=== PATIENT | female | born 1940 | race African-American/Black ===

== ENCOUNTER → 2016-03-30 | Day surgery (SDC) | payer OTHER ==
[2016-03-30 10:18] LABS: ALBUMIN 3.5 g/dl (3.4-5.0); CALCIUM 9.1 mg/dL (8.5-10.1)
[2016-03-30 10:21] LABS: BILIRUBIN,TOTAL 0.5 mg/dL (0.2-1.0); FREE T4 0.97 ng/dl (0.76-1.46); TOT PROT 6.8 g/dl (6.4-8.2)
[2016-03-31 06:08] LABS: THYROID PEROXIDASE(TPO) 20 IU/mL (0-34)
--- NOTE | 2016-03-31 16:58 | PATH ---
Cytology Non-Gynecological Report Patient Name: DARIEN HARPER [facility]. Rec. #: [id number] /Age/Gender: 1940 (Age: 75) / F Account: [id number] Location: RADIOLOGY Taken: 03/30/2016 Received: 03/30/2016 Reported: 03/31/2016 Physicians: Jacquelin Estrada M.D. Specimen(s) Received LEFT THYROID FNA Clinical History Left thyroid nodule, 4.57 x 3.19 x 3.87 cm Final Diagnosis THYROID GLAND, LEFT LOBE, US GUIDED FINE NEEDLE ASPIRATION BIOPSY: SATISFACTORY FOR EVALUATION. NO MALIGNANT CELLS IDENTIFIED. CONSISTENT WITH NODULAR GOITER WITH CYSTIC CHANGE (BENIGN FOLLICULAR NODULE, BETHESDA CATEGORY II, BENIGN), SEE COMMENT. Comment: The smears and the cell block show clusters of bland appearing follicular epithelial cells arranged in mixed micro- and microfollicles and flat sheets. A few cells show Hurthle cell (oncocytic) change. Numerous macrophages are present indicative of cystic change. Colloid is present. Electronically Signed Bret Gallagher M.D. Gross Description Received are four air dried smears, four smears in 95% alcohol, and 20 cc of bloody fluid in formalin. Four diff-quik stained slides, four Pap stained slides and one cell block are made.
[2016-04-01 17:55] LABS: THYROID STIMULATING HORMONE 0.29 uIU/ml (0.358-3.74)
[2016-04-05 08:06] LABS: THYROID STIM IMMUNOGLOBULIN 52 % (0-139)
== END | disposition home or self-care (01) ==
LOC: JRADIR 09:26
PROVIDERS: ATTEND Internal Medicine Endocrinology, Diabetes & Metabolism
PROC: 0G9G3ZX Drainage of Left Thyroid Gland Lobe, Percutaneous Approach, Diagnostic (ICD-10-PCS; principal; 2016-03-30)
PROC: BG44ZZZ Ultrasonography of Thyroid Gland (ICD-10-PCS; 2016-03-30)
DX: E04.1 Nontoxic single thyroid nodule (principal)
CPT/HCPCS: 36415; 76942; 80053; 84439; 84443; 84445; 84481; 86376; 88173; 88305-TC

== ENCOUNTER → 2016-04-13 | Day surgery (SDC) | payer OTHER ==
--- NOTE | 2016-04-14 14:55 | PATH ---
Cytology Non-Gynecological Report Patient Name: DARIEN HARPER [facility]. Rec. #: [id number] /Age/Gender: 1940 (Age: 76) / F Account: [id number] Location: RADIOLOGY Taken: 04/13/2016 Received: 04/13/2016 Reported: 04/14/2016 Physicians: Jacquelin Estrada M.D. Specimen(s) Received LEFT ISTHMUS NODULE FNA Clinical History Left isthmus nodule, 0.90 x 0.97 x 0.83 cm Final Diagnosis THYROID GLAND, LEFT ISTHMUS, US GUIDED FINE NEEDLE ASPIRATION BIOPSY: SATISFACTORY FOR EVALUATION. NO MALIGNANT CELLS IDENTIFIED. CONSISTENT WITH NODULAR GOITER (BENIGN FOLLICULAR NODULE, BETHESDA CATEGORY II, BENIGN), SEE COMMENT. Comment: Smears and cell block show scattered clusters of bland-appearing follicular epithelium cells with some cells showing Hurthle cell (oncocytic) change. Abundant colloid is present. Electronically Signed Bret Gallagher M.D. Gross Description Received are four air dried smears, four smears in 95% alcohol, and 20 cc of bloody fluid in formalin. Four diff-quik stained slides, four Pap stained slides and one cell block are made.
== END | disposition home or self-care (01) ==
LOC: JRADIR 08:50
PROVIDERS: ATTEND Internal Medicine Endocrinology, Diabetes & Metabolism
PROC: 0G9G3ZX Drainage of Left Thyroid Gland Lobe, Percutaneous Approach, Diagnostic (ICD-10-PCS; principal; 2016-04-13)
PROC: BG44ZZZ Ultrasonography of Thyroid Gland (ICD-10-PCS; 2016-04-13)
DX: E04.1 Nontoxic single thyroid nodule (principal)
CPT/HCPCS: 76942; 88173; 88305-TC

== ENCOUNTER 2017-06-29 06:03 | Day surgery (SDC) | payer OTHER ==
[2017-06-28 11:40] VITALS: BMI 33.9
[2017-06-29] MEDS ORDERED: oxyCODONE HCL 5 MG TABLET PO PRN ×2 (07:51)
[2017-06-29] MEDS ORDERED: ONDANSETRON 4 MG/2 ML VIAL IVPUSH PRN (07:51)
[2017-06-29] MEDS ORDERED: MIDAZOLAM HCL 2 MG/2 ML SINGLE DOSE VIAL ONE ×2 (07:54)
[2017-06-29] MEDS ORDERED: DEXAMETHASONE SOD PHOSPHATE/PF 10 MG/ML SDV ONE (07:55)
[2017-06-29] MEDS ORDERED: BUPIVACAINE HCL/PF 0.5% (5MG/ML) 10 ML VIAL ONE (07:56)
[2017-06-29] MEDS ORDERED: LACTATED RINGERS SOLUTION 1,000 ML IV SCH (08:00)
--- NOTE | 2017-06-29 08:13 | HP ---
Satellite [facility] - Chief Complaint Chief Complaint: right shoulder pain History of Present Illness: right shoulder impingement History Source: Patient Limitations to Obtaining History: No Limitations - Past Medical History Allergies/Adverse Reactions: Allergies Allergy/AdvReac Type Severity Reaction Status Date / Time No Known Allergies Allergy Verified 06/28/17 11:47 - Current Medications Current Medications: Home Medications Medication Instructions Recorded Simvastatin [Zocor -] 20 mg PO HS 07/07/15 Losartan Potassium 100 mg PO DAILY 06/28/17 Satellite Physical Exam - Physical Examination Vital Signs: Vital Signs Period Temp Pulse Resp BP Sys/Alvarez Pulse Ox Last 24 Hr 98.0 F 58 20 184/86 98 General Appearance: Well Nourished ENT: Clear Lung: Clear to auscultation Heart: Regular rate & rhythm Breasts: Soft Abdomen: Soft Extremities: No edema Satellite Impression/Plan - Impression/Plan Impression: right shoulder impingement syndrome Operative Procedure: right shoulder arthroscopy, decompression Date to be Performed: 06/29/17
[2017-06-29] MEDS ORDERED: DESFLURANE GAS 240 ML BOTTLE IH ONE ×2 (08:20→13:09)
[2017-06-29] MEDS ORDERED: ceFAZolin SODIUM 1 GM VIAL IVPB ONE (08:25)
--- NOTE | 2017-06-29 10:05 | OP ---
Operative Note - Note: Operative Date: 06/29/17 ([facility]) Pre-Operative Diagnosis: right shoulder impingement, rct Operation: right shoulder arthroscopy with RCR, SAD Implants: 1 arthrex swivelock Post-Operative Diagnosis: Same as Pre-op Surgeon: Dwayne Maldonado Community Service Officer: Hua Caldwell Anesthesiologist/RETAIL MERCHANDISER: Luigi Tineo Anesthesia: General, Local Specimens Removed: shavings Estimated Blood Loss (mls): 10 Operative Report Dictated: Yes
--- NOTE | 2017-06-29 10:32 | OP ---
DATE OF OPERATION: 06/29/2017 PREOPERATIVE DIAGNOSIS: Right shoulder impingement syndrome and rotator cuff tear. POSTOPERATIVE DIAGNOSIS: Right shoulder impingement syndrome and rotator cuff tear. PROCEDURE: Right shoulder arthroscopy, subacromial decompression, distal clavicle excision, and arthroscopic rotator cuff repair. SURGEON: Juan Claros MD VENDOR ANALYST: ANTOINETTE Frances ANESTHESIA: Luigi Tineo CRNA, right interscalene block, LMA anesthesia. DRAINS: None. COMPLICATIONS: None. SPECIMENS: None. BLOOD LOSS: 25 mL. BLOOD GIVEN: None. FLUID REPLACEMENT: 700 mL. INDICATIONS: This patient is a 77-year-old female with a preoperative diagnosis of right shoulder impingement syndrome and rotator cuff tear. After understanding the potential risks, complications, alternatives, and benefits, the patient elected to undergo this procedure. DESCRIPTION OF PROCEDURE: The patient was brought to the operating room. Peripheral IV place. IV sedation given. Then 2 g of IV Ancef were given. Right interscalene block was performed. The right upper extremity was prepped and draped in the usual sterile fashion. The bony landmarks were marked out with a marking pen. The posterior portal was established. A diagnostic glenohumeral arthroscopy was performed. In the glenohumeral joint the patient had a mild amount of glenoid arthritis. The labrum was quite frayed as was the undersurface of the rotator cuff; therefore, an anterior portal was established with a spinal needle under direct visualization. Then a No. 15 scalpel blade was used and a green cannula introduced into the anterior aspect of the joint. The ArthroCare wand was used to cauterization and the shaver used to remove the frayed portion to the undersurface of the rotator cuff tear as well as the labrum. Then the labrum looked good. It did not need repair. The humeral head looked good. Biceps tendon looked good. There was a clear full-thickness rotator cuff tear about the size of a quarter. The area was debrided on the bottom. Next, our attention was turned to the subacromial space. The patient had a tremendous amount of inflammatory bursitis. A lateral portal was established with a spinal needle then a green cannula was introduced into the subacromial space. The ArthroCare wand was used to do an extensive debridement/soft tissue bursectomy. This revealed a very large subacromial spur, which was taken down with a 5.5-mm oval bur, finetuned and reversed and then a shaver was introduced to further remove all soft tissue and bony debris. This revealed a small, distal subclavicular spur. This was taken down with a 5.5-mm oval bur and a shaver. Once this was done, there was room for visualization. There was a tremendous amount of soft tissue bursitis still. This was taken down with a shaver and the ArthroCare wand. This was revealed a full-thickness rotator cuff tear. It was not at the insertion. It was about 2 cm proximal to the insertion of the supraspinatus. It was anterior. The edges were cleaned up and ArthroCare wand used to take off soft tissue from the proximal lateral aspect of the humerus at the landing point of the rotator cuff. Once this was done, under direct visualization a Scorpion needle passer was used to put in 1 horizontal mattress suture. The 2 tails were fed through an Arthrex SwiveLock anchor, and it was placed down into the bone in the standard fashion. The excess tail was cut. It was directly visualized. The rotator cuff now moved as a unit with the humerus. A quarter-sized hole was closed up, and overall it looked much better. The area was copiously irrigated and washed out. All instrumentation removed. Excess saline removed. The arthroscopy portal was closed with 3-0 nylon sutures. The area was then washed and dried, covered with Aquacel dressings. She was placed into a shoulder immobilizer. Total operative time was about 50 minutes. There were no complications during the case. The patient tolerated the procedure quite well and was brought to the ambulatory recovery room in stable condition. JUAN CLAROS M.D. [id number]
[2017-06-29 12:31] VITALS: BP 140/70; PULSE 55; TEMP 98
--- NOTE | 2017-06-30 15:50 | PATH ---
Surgical Pathology Report Patient Name: DARIEN HARPER [facility]. Rec. #: [id number] /Age/Gender: 1940 (Age: 77) / F Account: [id number] Location: [facility] SURGICAL Taken: 06/29/2017 Received: 06/29/2017 Reported: 06/30/2017 Physicians: Dwayne Maldonado M.D. Specimen(s) Received RIGHT SHOULDER SHAVINGS Clinical History Tear right shoulder Final Diagnosis RIGHT SHOULDER, SHAVINGS: FRAGMENTS OF SYNOVIAL TISSUE WITH PROLIFERATION, CHRONIC INFLAMMATION, AND FIBROSIS. FIBROCARTILAGINOUS TISSUE AND BONE WITH DEGENERATIVE CHANGE. UNREMARKABLE SKELETAL MUSCLE FRAGMENTS. Electronically Signed Ebony Sebastian M.D. Gross Description Received in formalin, labeled "right shoulder shavings," is a 5.0 x 3.8 x 0.6 cm. aggregate of goodman-yellow soft tissue fragments. A sales representative girls' apparel portion is submitted in one cassette. /06/29/2017 saudi/06/29/2017
== END 2017-06-29 12:25 | disposition home or self-care (01) ==
LOC: JASU-SURG 06:03
PROVIDERS: ATTEND Orthopaedic Surgery
PROC: 0RNJ4ZZ Release Right Shoulder Joint, Percutaneous Endoscopic Approach (ICD-10-PCS; 2017-06-29)
PROC: 0PB94ZZ Excision of Right Clavicle, Percutaneous Endoscopic Approach (ICD-10-PCS; 2017-06-29)
PROC: 0LQ14ZZ Repair Right Shoulder Tendon, Percutaneous Endoscopic Approach (ICD-10-PCS; principal; 2017-06-29 08:00)
DX: M75.101 Unspecified rotator cuff tear or rupture of right shoulder, not specified as traumatic (principal); M75.41 Impingement syndrome of right shoulder
CPT/HCPCS: 88304-TC; 94760

== ENCOUNTER 2017-10-27 17:06 | Inpatient (IN) | payer OTHER ==
[2017-10-27 17:35] VITALS: BMI 34.7
--- NOTE | 2017-10-27 17:36 | PDOC ---
Rapid Medical Evaluation Time Seen by Provider: 10/27/17 17:30 Medical Evaluation: Allergies Allergy/AdvReac Type Severity Reaction Status Date / Time No Known Allergies Allergy Verified 06/28/17 11:47 10/27/17 17:30 Pt presents for L arm and leg numbness starting yesterday at 4am. Denies headache, visual changes, weakness in the extremities. Exam: Smile intact. No arm drift. Normal gait Orders: Labs, IV insert, Urine Pt to proceed to ED for further evaluation Discharge Disposition - Diagnosis Numbness and tingling - Referrals - Patient Instructions - Post Discharge Activity
--- NOTE | 2017-10-27 17:52 | PDOC ---
History of Present Illness - General Chief Complaint: CVA/TIA Stated Complaint: NUMBNESS Time Seen by Provider: 10/27/17 17:30 - History of Present Illness Initial Comments: 10/27/17 19:37 77 yo F w a hx of HTN, T2DM, HLD, hypothyroidism is here with left sided numbness and weakness. She last felt well on Tuesday night. On Tuesday morning she woke up with Left sided weakness, numbness and tingling in her arm and leg. She then went to her elevator conductor doctor today who suggested she might have had a stroke and urgently sent her to the ED. She presented today to the ED with residual left arm and leg numbness. She denies any headaches, blurry vission, loss of balance, or confusion. She denies recent fevers, chills or infections Denies chest pain, palpitations, irregular heart rate, SOB, difficulty breathing. 10/27/17 19:44 10/27/17 20:16 tPA Exclusion checklist 3-4.5h - Time Elapsed Date last known well: 10/25/17 Time last known well: 23:30 Elaspsed time: 1 Day(s) and 20 Hour(s) and 53 Minutes - Thrombolytic Therapy Candidate Is patient eligible for thrombolytic therapy: No - Exclusion Criteria 3-4.5 hr SBP greater than 185 or DBP greater than 110mmHg despite tx: Yes Recent IC/spinal surgery,head trauma or stroke<3mos.: No Hx IC hemorrhage, IC neoplasm, AV malformation or aneurysm: No Active internal bleeding: No Blding diathesis(low plt ct, inc PTT,INR>1.7 or use of NOAC): No Symptoms suggest subarachnoid hemorrhage: No CT demonstrates multilobar infarct(>1/3 cerebral hemiphere): No Arterial puncture at noncompressible site in previous 7 days: No Blood glucose concentration less than 50mg/dL (2.7mmol/L): No - Add'l Relative Exclusion 3-4.5 hr Age > 80: No - Ineligibility reason(s) Reasons No tPA given: Outside of window - delayed arrival (Outside of arrival NIHSS of 1 - does not wualify for TPA) NIH Stroke Scale - Last Known Well Date/Time & Onset Date Last Known Well: 10/25/17 Time Last Known Well: 23:30 - Initial Evaluation Level of consciousness: Alert Ask patient the month and their age: Answers both correctly Ask patient to open & close eyes; make fist and let go: Obeys both correctly Best gaze (horizontal eye movement): Normal Visual field testing: No visual field loss Facial paresis (Show teeth/raise eyebrows/close eyes tight): Normal symmetrical movement Motor Function: Left Arm: Normal Motor Function: Right Arm: Normal (extends arm 90 (or 45) degrees for 10 seconds without drift Motor Function: Left Leg: Normal (extends leg 30 degrees for 5 seconds without drift) Motor Function: Right Leg: Normal (extends leg 30 degrees for 5 seconds without drift) Limb Ataxia: No ataxia Sensory(Use pinprick test arms,legs,trunk,face/side to side): Mild to moderate decrease in sensation Best language (Describe picture, name items, read sentences): No Aphasia Dysarthria (read several words): Normal articulation Extinction and Inattention: No abnormality - Total Score NIH Stroke Scale Score: 1 Past History - Past Medical History Allergies/Adverse Reactions: Allergies Allergy/AdvReac Type Severity Reaction Status Date / Time No Known Allergies Allergy Verified 10/27/17 17:31 Home Medications: Ambulatory Orders Simvastatin [Zocor -] 20 mg PO HS 07/07/15 Losartan Potassium 100 mg PO DAILY 06/28/17 Anemia: No Asthma: No Cancer: No Cardiac Disorders: No CVA: No COPD: No CHF: No Dementia: No Diabetes: No GI Disorders: No Disorders: No HTN: Yes Hypercholesterolemia: Yes Liver Disease: No Seizures: No Thyroid Disease: Yes (hypothyroid) - Immunization History Immunization Up to Date: Yes - Suicide/Smoking/Psychosocial Hx Smoking History: Never smoked Hx Alcohol Use: Yes (wine occas) Drug/Substance Use Hx: No Substance Use Type: Alcohol Hx Substance Use Treatment: No Review of Systems - Review of Systems Comments:: 10/27/17 19:50 NEUROLOGIC: Positive: Focal weakness, paresthesias Absent: headache, dizziness, unsteady gait, seizure, mental status changes, bladder or bowel incontinence CONSTITUTIONAL: Absent: fever, chills, diaphoresis, generalized weakness, malaise, loss of appetite HEENT: Absent: rhinorrhea, nasal congestion, throat pain, throat swelling, difficulty swallowing, mouth swelling, ear pain, eye pain, visual Changes CARDIOVASCULAR: Absent: chest pain, syncope, palpitations, irregular heart rate, lightheadedness , peripheral edema RESPIRATORY: Absent: cough, shortness of breath, dyspnea with exertion, orthopnea, wheezing, stridor, hemoptysis GASTROINTESTINAL: Absent: abdominal pain, abdominal distension, nausea, vomiting, diarrhea, constipation, melena, hematochezia GENITOURINARY: Absent: dysuria, frequency, urgency, hesitancy, hematuria, flank pain, genital pain MUSCULOSKELETAL: Absent: myalgia, arthralgia, joint swelling SKIN: Absent: rash, itching, pallor HEMATOLOGIC/IMMUNOLOGIC: Absent: easy bleeding, easy bruising, lymphadenopathy, frequent infections ENDOCRINE: Absent: unexplained weight gain, unexplained weight loss, heat intolerance, cold intolerance PSYCHIATRIC: Absent: anxiety, depression, suicidal or homicidal ideation, hallucinations. *Physical Exam - Vital Signs Last Vital Signs Temp Pulse Resp BP Pulse Ox 97.9 F 55 L 18 0/0 100 10/27/17 17:31 10/27/17 17:31 10/27/17 17:31 10/27/17 17:31 10/27/17 17:31 - Physical Exam Comments: 10/27/17 19:51 NEUROLOGICAL: There is decreased sensation and motor weakness in both the Left arm and left leg. Alert, awake, appropriate. Cranial nerves 2-12 intact. No deficits to light touch in face. No motor deficits in the in face. Normoreflexic in the upper and lower extremities. Normal speech. Toes are down-going bilaterally. Gait is normal without ataxia. GENERAL: Well developed, well nourished. Awake and alert. No acute distress. HEENT: Normocephalic, atraumatic. PERRLA, EOMI. No conjunctival pallor. Sclera are non- icteric. Moist mucous membranes. Oropharynx is clear. NECK: Supple. Full ROM. No JVD. No lymphadenopathy. CARDIOVASCULAR: Bradycardic rate, regular rhythym. No murmurs, rubs, or gallops. Distal pulses are 2+ and symmetric. PULMONARY: No evidence of respiratory distress. Lungs clear to auscultation bilaterally. No wheezing, rales or rhonchi. ABDOMINAL: Soft. Non-tender. Non-distended. No rebound or guarding. No organomegaly. Normoactive bowel sounds. MUSCULOSKELETAL Normal range of motion at all joints. No bony deformities or tenderness. No CVA tenderness. EXTREMITIES: No cyanosis. No clubbing. No edema. No calf tenderness. SKIN: Warm and dry. Normal capillary refill. No rashes. No jaundice. PSYCHIATRIC: Cooperative. Good eye contact. Appropriate mood and affect. ED Treatment Course - LABORATORY CBC & Chemistry Diagram: 10/27/17 17:37 10/27/17 17:37 Medical Decision Making - Medical Decision Making 10/27/17 19:55 77 yo F w a hx of HTN, T2DM, HLD, hypothyroidism here with left sided weakness and numbness. 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 Plan: Stroke/CVA workup. BP is elevated to 190 systolic. HR decreased to 55. We will give hydralazine to lower BP and then re-assess. Consulted Dr. Andrea and he advised to start Aggrenox bc her baby aspirin has failed her. We gave her 325 aspirin here in ED. EKG did not show AFIB Labs were unremarkable. She will be admitted for further workup - echo, carotid doppler, mri/mra 10/27/17 20:23 10/27/17 20:25 10/27/17 20:28 *DC/Admit/Observation/Transfer Diagnosis at time of Disposition: Numbness and tingling, Cerebrovascular accident (CVA) - Discharge Dispostion Condition at time of disposition: Guarded Decision to Admit order: Yes - Referrals - Patient Instructions - Post Discharge Activity
[2017-10-27] MEDS ORDERED: SODIUM CHLORIDE 1,000 ML IV SCH (18:00)
[2017-10-27 19:02] LABS: INR 1.06 (0.83-1.09)
[2017-10-27 19:07] LABS: BASO % 0.5 % (0-2.0); EOS % 3.3 % (0-4.5); HEMOGLOBIN 12.8 GM/dL (10.7-15.3); LYMPH % 28.9 % (8-40); MCHC 32.7 g/dl (32.0-36.0); MEAN CELL VOLUME 85.7 fl (80-96); MEAN PLT VOLUME 11.1 fl (7.5-11.1); MONO % 11.3 % (3.8-10.2); PLATELET COUNT 159 K/MM3 (134-434); RBC 4.55 M/mm3 (3.60-5.2); RDW 14.3 % (11.6-15.6)
[2017-10-27 19:13] LABS: CHOLESTEROL 158 mg/dL (50-200); HDL CHOLESTEROL 65 mg/dL (40-60); TRIGLYCERIDES 61 mg/dL (35-160)
[2017-10-27 19:18] LABS: ALK PHOS 81 U/L (45-117); ANION GAP 8 MMOL/L (8-16); BILIRUBIN,TOTAL 0.7 mg/dL (0.2-1.0); BLOOD UREA NITROGEN 27 mg/dL (7-18); CALCIUM 9.1 mg/dL (8.5-10.1); CHLORIDE 106 mmol/L (98-107); CO2 28 mmol/L (21-32); CREATININE 0.9 mg/dL (0.55-1.3); GLUCOSE,RANDOM 84 mg/dL (74-106); SGPT/ALT 27 U/L (13-61); SODIUM 142 mmol/L (136-145); TOT PROT 7.6 g/dl (6.4-8.2)
[2017-10-27 19:27] LABS: POTASSIUM 4.8 mmol/L (3.5-5.1)
[2017-10-27 19:28] LABS: SGOT/AST 27 U/L (15-37)
[2017-10-27] MEDS ORDERED: ASPIRIN 325 MG TABLET PO ONE (19:28)
--- NOTE | 2017-10-27 19:29 | PDOC ---
Attending Attestation - Resident Resident Name: Sal Mcfarland - HPI HPI: 10/27/17 19:45 Pt presents to the ED complaining of 48 hours of LUE and LLE numbness and weakness. Presented to her property master today who told her to come to the ED to be worked up for CVA. Patient is concerned about missing an appointment that she has for pain management tomorrow Am at 9:00. 10/27/17 19:53 - Physicial Exam PE: 10/27/17 19:54 Agree with resident exam. Patient is alert and oriented and in no acute distress. Neuro: AAOx3, speech fluent and clear. 4/5 strength LUE apron trimmer and biceps flexion. Able to lift left leg off the bed but not to hold it up. - Medical Decision Making 10/27/17 19:55 Pt presents to the ED complaining of LUE and LLE numbness and weakness. Denies other complaints. Concern for CVA--CT shows R sided infarct. Plan was to admit the patient for continued CVA work up, including carotid doppler and ECHO and MRI/MRA, but patient is choosing to leave AMA. She has a pain management appointment for long standing back pain that she made several years ago, and she is very worried about missing it. She wants to return to the ED tomorrow after her appointment to complete her work up. I have spoken with her at length about the risk of further CVA with worsening neurologic deficits, including loss of the ability to speak and walk and and she is adamant about leaving. She understands the risks and promises to return for follow up care.
[2017-10-27] MEDS ORDERED: ASPIRIN 325 MG TABLET ONE (19:31)
[2017-10-27 19:54] LABS: URINE APPEARANCE CLEAR; URINE BILIRUBIN NEGATIVE (<2.0 mg/dL); URINE COLOR YELLOW; URINE GLUCOSE (UA) 3+ (NEGATIVE); URINE KETONE NEGATIVE (NEGATIVE); URINE LEUK ESTERASE NEGATIVE (NEGATIVE); URINE NITRITE NEGATIVE (NEGATIVE); URINE PROTEIN NEGATIVE (NEGATIVE); URINE UROBILINOGEN NEGATIVE mg/dL (0.2-1.0)
[2017-10-27] MEDS ORDERED: hydrALAZINE HCL 10 MG TABLET PO ONE ×2 (20:25→22:29)
[2017-10-27] MEDS ORDERED: hydrALAZINE HCL 25 MG TABLET (FP) ONE ×2 (20:27→22:32)
--- NOTE | 2017-10-27 21:17 | PN ---
Teaching Attending Note Name of Resident: Inés Osborn ATTENDING PHYSICIAN STATEMENT I saw and evaluated the patient. I reviewed the resident's note and discussed the case with the resident. I agree with the resident's findings and plan as documented. SUBJECTIVE: Patient is a 77 year old woman with history of HTN, NIDDM, HLD, and hypothyroidism who presents with left sided numbness and weakness for 1 day. She last felt well on Tuesday night. On Tuesday morning she woke up with Left sided weakness, numbness and tingling in her arm and leg. She then went to her integrated circuit layout designer doctor today who suggested she might have had a stroke and urgently sent her to the ER. She presented today to the ER with residual left arm and leg numbness. Has had poor BP control due to an inadequate regimen. Denies headaches, blurry vision, loss of balance, chills, chest pain or SOB. OBJECTIVE: Alert and obese Vital Signs Period Temp Pulse Resp BP Sys/Alvarez Pulse Ox Last 24 Hr 97.9 F 55-58 18-18 0-207/0-96 99-100 HEENT: No Jaundice, eye redness or discharge, PERRLA, EOMI. Normocephalic, atraumatic. External ears are normal and hearing is grossly intact. No nasal discharge. Neck: Supple, nontender. No palpable adenopathy or thyromegaly. No JVD Chest: Good effort. Clear to auscultation and percussion. Heart: Regular. No S3, rub or murmur Abdomen: Not distended, soft, nontender and no HSM. No rebound or guarding. Normoactive bowel sounds. Ext: Peripheral pulses intact. No leg edema. Skin: Warm and dry. No petechiae, rash or ecchymosis. Neuro: Alert. Oriented x3. CN 2-12 grossly intact. Poor memory. Drags her left leg on ambulation. No perceptible hemiparesis. Plantar reflexes are flexor. Sensation grossly intact in all four extremities and DTR are symmetric. Current Medications Generic Name Dose Route Start Last Admin Trade Name Freq PRN Reason Stop Dose Admin Sodium Chloride 1,000 mls @ 42 mls/hr 10/27/17 18:00 10/27/17 20:00 Normal Saline - IV 42 mls/hr ASDIR VIDAL Administration Home Medications Medication Instructions Recorded Simvastatin [Zocor -] 20 mg PO HS 07/07/15 Losartan Potassium 100 mg PO DAILY 06/28/17 Abnormal Lab Results 10/27/17 10/27/17 10/27/17 17:37 17:37 17:57 Monocytes % 11.3 H BUN 27 H Creatine Kinase 198 H HDL Cholesterol Urine Glucose (UA) 10/27/17 10/27/17 17:57 18:31 Monocytes % BUN Creatine Kinase HDL Cholesterol 65 H Urine Glucose (UA) 3+ H ASSESSMENT AND PLAN: 1. CVA - CT showed acute/subacute small right thalamocapsular infarct. Will implement permissive hypertension regimen, do swallow evaluation, get ECHO, monitor on telemetry to begin search for a.fib, increase zocor to 40 mg qd, continue aspirin, consult neurology, get brain MRI, carotid doppler and TFT. Consult cardiology - may need prolonged out patient monitoring for cryptogenic stroke. Patient counseled about compliance with antihypertensive medications, reduced dietary salt intake, exercise, and weight loss. 2. Borderline DM - Implement sliding scale insulin regimen. Provide comprehensive diabetes care with patient teaching and counseling about the importance of euglycemia, eye care and foot care. 3. Obesity - Will provide patient all the necessary assistance, counseling and positive reinforcement to facilitate weight loss. Consult power generation equipment repairer. 4. DVT prophylaxis - Lovenox 40 mg SQ q 24 hours. 5. Advance directives - Full code
[2017-10-27] MEDS ORDERED: ATORVASTATIN CA 80 MG TABLET (FP) PO ONE (23:14)
--- NOTE | 2017-10-27 23:18 | HP ---
CHIEF COMPLAINT: L sided numbness and weakness PCP: HISTORY OF PRESENT ILLNESS: 77 y/o female with PMH of DM,HTN,HLD hypothyroidism presents to the ED with complaints of L sided numbness and weakness since yesterday. Patient states that she woke up yesterday morning and could not feel her left side and her left leg felt weak. She went about her no day then went to her auto driver who told her to come to the ER immediately. She denies any headache/dizziness or any other neurological symptoms. She did not notice any changes in her gait or speech. 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 (2) (3) Recent Travel: none PAST MEDICAL HISTORY: see above PAST SURGICAL HISTORY: thyroid removal-1991 Social History: Smoking:denies Alcohol:denies Drugs: denies Family History: DM and HTN on both sides Allergies No Known Allergies Allergy (Verified 10/27/17 17:31) HOME MEDICATIONS: Home Medications Medication Instructions Recorded Simvastatin [Zocor -] 20 mg PO HS 07/07/15 Losartan Potassium 100 mg PO DAILY 06/28/17 REVIEW OF SYSTEMS CONSTITUTIONAL: Present: Left sided weakness Absent: fever, chills, diaphoresis, malaise, loss of appetite, weight change HEENT: Absent: rhinorrhea, nasal congestion, throat pain, throat swelling, difficulty swallowing, mouth swelling, ear pain, eye pain, visual changes CARDIOVASCULAR: Absent: chest pain, syncope, palpitations, irregular heart rate, lightheadedness , peripheral edema RESPIRATORY: Absent: cough, shortness of breath, dyspnea with exertion, orthopnea, wheezing, stridor, hemoptysis GASTROINTESTINAL: Absent: abdominal pain, abdominal distension, nausea, vomiting, diarrhea, constipation, melena, hematochezia GENITOURINARY: Absent: dysuria, frequency, urgency, hesitancy, hematuria, flank pain, genital pain MUSCULOSKELETAL: Present:myalgia, arthralgia Absent: joint swelling, back pain, neck pain SKIN: Absent: rash, itching, pallor HEMATOLOGIC/IMMUNOLOGIC: Absent: easy bleeding, easy bruising, lymphadenopathy, frequent infections ENDOCRINE: Absent: unexplained weight gain, unexplained weight loss, heat intolerance, cold intolerance NEUROLOGIC: Present: focal weakness or paresthesias Absent: headache, dizziness, unsteady gait, seizure, mental status changes, bladder or bowel incontinence PSYCHIATRIC: Absent: anxiety, depression, suicidal or homicidal ideation, hallucinations. PHYSICAL EXAMINATION Vital Signs - 24 hr 10/27/17 10/27/17 10/27/17 17:31 17:58 19:36 Temperature 97.9 F Pulse Rate 55 L Pulse Rate [ 58 L Right Radial] Respiratory 18 18 Rate Blood Pressure 0/0 Blood Pressure 207/96 190/85 [Right Arm] O2 Sat by Pulse 100 99 Oximetry (%) 10/27/17 10/27/17 10/27/17 21:15 22:29 22:42 Temperature Pulse Rate Pulse Rate [ 72 Right Radial] Respiratory 18 Rate Blood Pressure Blood Pressure 163/73 195/71 [Right Arm] O2 Sat by Pulse 98 98 Oximetry (%) GENERAL: Awake, alert, and fully oriented, in no acute distress. EYES: Pupils equal, round and reactive to light, extraocular movements intact, sclera anicteric, conjunctiva clear. No lid lag.. NECK: no JVD appreciated LUNGS: CTA B/L; no rales, rhonchi, wheezing. HEART: Regular rate and rhythm, normal S1 and S2 without murmur, rub or gallop. ABDOMEN: Soft, nontender, not distended, normoactive bowel sounds, no guarding, no rebound, no masses. No hepatomegaly or splenomegaly. MUSCULOSKELETAL: Normal range of motion at all joints. No bony deformities or tenderness. No CVA tenderness. EXTREMITIES: warm; well perfused; no clubbing/cyanosis or edema NEUROLOGICAL: Cranial nerves II-XII intact. Normal speech. Normal gait.; Left sided diminished sensation and 4/5 strength - Right sided 5/5 strength with sensation intact. no facial droop or asymmetry appreciated PSYCHIATRIC: Cooperative. Good eye contact. Appropriate mood and affect. SKIN: Warm, dry, normal turgor, no rashes or lesions noted, normal capillary refill. Laboratory Results - last 24 hr 10/27/17 10/27/17 10/27/17 17:37 17:37 17:37 WBC 7.0 RBC 4.55 Hgb 12.8 Hct 39.0 MCV 85.7 MCH 28.0 MCHC 32.7 RDW 14.3 Plt Count 159 MPV 11.1 Absolute Neuts (auto) 3.9 Neutrophils % 56.0 Lymphocytes % 28.9 Monocytes % 11.3 H Eosinophils % 3.3 Basophils % 0.5 Nucleated RBC % 0 PT with INR 12.00 INR 1.06 Sodium 142 Potassium 4.8 Chloride 106 Carbon Dioxide 28 Anion Gap 8 BUN 27 H Creatinine 0.9 Creat Clearance w eGFR > 60 Random Glucose 84 Calcium 9.1 Total Bilirubin 0.7 AST 27 ALT 27 Alkaline Phosphatase 81 Creatine Kinase Creatine Kinase Index CK-MB (CK-2) Troponin I Total Protein 7.6 Albumin 4.0 Triglycerides Cholesterol Total LDL Cholesterol HDL Cholesterol Urine Color Urine Appearance Urine pH Ur Specific [place] Urine Protein Urine Glucose (UA) Urine Ketones Urine Blood Urine Nitrite Urine Bilirubin Urine Urobilinogen Ur Leukocyte Esterase Blood Type Antibody Screen 10/27/17 10/27/17 10/27/17 17:57 17:57 17:57 WBC RBC Hgb Hct MCV MCH MCHC RDW Plt Count MPV Absolute Neuts (auto) Neutrophils % Lymphocytes % Monocytes % Eosinophils % Basophils % Nucleated RBC % PT with INR INR Sodium Potassium Chloride Carbon Dioxide Anion Gap BUN Creatinine Creat Clearance w eGFR Random Glucose Calcium Total Bilirubin AST ALT Alkaline Phosphatase Creatine Kinase 198 H Creatine Kinase Index 0.9 CK-MB (CK-2) 1.87 Troponin I < 0.02 Total Protein Albumin Triglycerides 61 Cholesterol 158 Total LDL Cholesterol 87 HDL Cholesterol 65 H Urine Color Urine Appearance Urine pH Ur Specific [place] Urine Protein Urine Glucose (UA) Urine Ketones Urine Blood Urine Nitrite Urine Bilirubin Urine Urobilinogen Ur Leukocyte Esterase Blood Type O NEGATIVE Antibody Screen Negative 10/27/17 18:31 WBC RBC Hgb Hct MCV MCH MCHC RDW Plt Count MPV Absolute Neuts (auto) Neutrophils % Lymphocytes % Monocytes % Eosinophils % Basophils % Nucleated RBC % PT with INR INR Sodium Potassium Chloride Carbon Dioxide Anion Gap BUN Creatinine Creat Clearance w eGFR Random Glucose Calcium Total Bilirubin AST ALT Alkaline Phosphatase Creatine Kinase Creatine Kinase Index CK-MB (CK-2) Troponin I Total Protein Albumin Triglycerides Cholesterol Total LDL Cholesterol HDL Cholesterol Urine Color Yellow Urine Appearance Clear Urine pH 6.0 Ur Specific [place] 1.029 Urine Protein Negative Urine Glucose (UA) 3+ H Urine Ketones Negative Urine Blood Negative Urine Nitrite Negative Urine Bilirubin Negative Urine Urobilinogen Negative Ur Leukocyte Esterase Negative Blood Type Antibody Screen ASSESSMENT/PLAN: 77 y/o female with history of HTN, HLD, DM, hypothyroidism presents to the ED with a one day history of L sided numbness and weakness found to have a R sided thalamo capsular infarct on CT scan. #CVA patient found to have positive R sided infarct on CT and was given ASA 325 -echo ordered -brain MRI -carotid dopplers ordered -neurology consulted -cardiology consult -Lipitor 40 -monitor BP: maintain systolic BP around 200 -neuro checks q4H -c/w ASA #HTN -holding medications for the time being #HLD -increased to lipitor to 40 #DM -started patient on ISS -will verify if patient was on previous DM meds at home DVT prophyalxis: lovenox 40 SQ F/E/N not on standing fluids replete electrolytes when needed diabetic diet dispo: telemetry Problem List - Problem (1) Cerebrovascular accident (CVA) Code(s): I63.9 - CEREBRAL INFARCTION, UNSPECIFIED (2) Numbness and tingling Code(s): R20.0 - ANESTHESIA OF SKIN; R20.2 - PARESTHESIA OF SKIN Visit type - Emergency Visit Emergency Visit: Yes ED Registration Date: 10/27/17 Care time: The patient presented to the Emergency Department on the above date and was hospitalized for further evaluation of their emergent condition. - New Patient This patient is new to me today: Yes Date on this admission: 10/28/17 - Critical Care Critical Care patient: No Hospitalist Screening - Colonoscopy Questionnaire Colonoscopy Questionnaire: Colonoscopy Questionnaire - Patient: 50 - 75 years old and never had a screening colonoscopy: Unknown History of colon or rectal polyps, or CA: Unknown History of IBD, Crohn's disease or UC: Unknown History of abdominal radiation therapy as a child: Unknown - Relative: 1 with colon or rectal CA, or polyps at age 60 or younger: Unknown Colon or rectal CA diagnosed at age 45 or younger: Unknown Multiple relatives with colon or rectal CA: Unknown - Outcome: Screening Result: Negative Screen
[2017-10-27] MEDS ORDERED: ATORVASTATIN CA 40 MG TABLET (FP) ONE (23:28)
[2017-10-27] MEDS: SODIUM CHLORIDE 1,000 ML IV SCH (23:32)
[2017-10-28] MEDS: INSULIN SLIDING SCALE (NOVOLOG) 1 VIAL SQ SCH ×4 (07:03→21:51)
[2017-10-28 07:28] LABS: HEMATOCRIT 39.5 % (32.4-45.2); HEMOGLOBIN 12.8 GM/dL (10.7-15.3); MCH 27.4 pg (25.7-33.7); MCHC 32.3 g/dl (32.0-36.0); MEAN CELL VOLUME 84.7 fl (80-96); MEAN PLT VOLUME 10.2 fl (7.5-11.1); PLATELET COUNT 144 K/MM3 (134-434); RBC 4.67 M/mm3 (3.60-5.2); RDW 14.3 % (11.6-15.6); WHITE BLOOD COUNT 4.8 K/mm3 (4.0-10.0)
[2017-10-28 08:06] LABS: CHLORIDE 103 mmol/L (98-107); POTASSIUM 4.3 mmol/L (3.5-5.1); SODIUM 140 mmol/L (136-145)
[2017-10-28 08:21] LABS: ALBUMIN 3.7 g/dl (3.4-5.0); ALK PHOS 78 U/L (45-117); ANION GAP 7 MMOL/L (8-16); BILIRUBIN,TOTAL 0.8 mg/dL (0.2-1.0); BLOOD UREA NITROGEN 22 mg/dL (7-18); CALCIUM 9.1 mg/dL (8.5-10.1); CO2 30 mmol/L (21-32); CREATININE 0.8 mg/dL (0.55-1.3); GLUCOSE,RANDOM 91 mg/dL (74-106); MAGNESIUM 2.3 mg/dL (1.8-2.4); PHOSPHOROUS 3.6 mg/dL (2.5-4.9); SGOT/AST 24 U/L (15-37); SGPT/ALT 24 U/L (13-61); TOT PROT 7.4 g/dl (6.4-8.2)
--- NOTE | 2017-10-28 09:16 | EKG ---
Test Reason : Blood Pressure : / mmHG Vent. Rate : 061 BPM Atrial Rate : 061 BPM P-R Int : 134 ms QRS Dur : 076 ms QT Int : 408 ms P-R-T Axes : 035 006 013 degrees QTc Int : 410 ms SINUS RHYTHM WITH MARKED SINUS ARRHYTHMIA MINIMAL VOLTAGE CRITERIA FOR LVH, MAY BE NORMAL VARIANT WHEN COMPARED WITH ECG OF 13-DEC-2002 17:45, NO SIGNIFICANT CHANGE WAS FOUND Confirmed by FRANK HUYNH, GURMEET ([id number]) on 10/28/2017 9:15:59 AM Referred By: Confirmed By:GURMEET MARIE MD
--- NOTE | 2017-10-28 09:40 | CONSULT ---
Consult - text type - Consultation Consultation Note: Neurology CHIEF COMPLAINT: L sided numbness and weakness PCP: HISTORY OF PRESENT ILLNESS: 77 y/o female with PMH of DM,HTN,HLD hypothyroidism presents to the ED with complaints of L sided numbness and weakness. Patient stated that she woke up and could not feel her left side and her left leg felt weak. She went about her day then went to her demolition hammer operator who told her to come to the ER immediately. She denied any headache/dizziness or any other neurological symptoms. She did not notice any changes in her gait or speech. 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 I was contacted by ER and we discussed results. Patient was not in TPA window and low NIHSS. She reports some slight numbness in distal LLE but otherwise no focal deficits, no speech disturbance. Was taking ASA at home which I increased to Aggrenox. Patient would like to go home today and explained that we would need Carotid doppler, echo completed and reviewed. Will defer on MRI as CT head already demonstrated infarct. at bedside and in agreement. On telemetry monitoring. On Statin 20mg at home, was increased to 80mg in ER, AM LDL is 87, will adjust statin down to 40 which should be sufficient. Recent Travel: none PAST MEDICAL HISTORY: see above PAST SURGICAL HISTORY: thyroid removal-1991 Social History: Smoking:denies Alcohol:denies Drugs: denies Family History: DM and HTN on both sides Allergies No Known Allergies Allergy (Verified 10/27/17 17:31) HOME MEDICATIONS: Home Medications Medication Instructions Recorded Simvastatin [Zocor -] 20 mg PO HS 07/07/15 Losartan Potassium 100 mg PO DAILY 06/28/17 REVIEW OF SYSTEMS CONSTITUTIONAL: Present: Left sided weakness Absent: fever, chills, diaphoresis, malaise, loss of appetite, weight change HEENT: Absent: rhinorrhea, nasal congestion, throat pain, throat swelling, difficulty swallowing, mouth swelling, ear pain, eye pain, visual changes CARDIOVASCULAR: Absent: chest pain, syncope, palpitations, irregular heart rate, lightheadedness , peripheral edema RESPIRATORY: Absent: cough, shortness of breath, dyspnea with exertion, orthopnea, wheezing, stridor, hemoptysis GASTROINTESTINAL: Absent: abdominal pain, abdominal distension, nausea, vomiting, diarrhea, constipation, melena, hematochezia GENITOURINARY: Absent: dysuria, frequency, urgency, hesitancy, hematuria, flank pain, genital pain MUSCULOSKELETAL: Present:myalgia, arthralgia Absent: joint swelling, back pain, neck pain SKIN: Absent: rash, itching, pallor HEMATOLOGIC/IMMUNOLOGIC: Absent: easy bleeding, easy bruising, lymphadenopathy, frequent infections ENDOCRINE: Absent: unexplained weight gain, unexplained weight loss, heat intolerance, cold intolerance NEUROLOGIC: Present: focal weakness or paresthesias Absent: headache, dizziness, unsteady gait, seizure, mental status changes, bladder or bowel incontinence PSYCHIATRIC: Absent: anxiety, depression, suicidal or homicidal ideation, hallucinations. PHYSICAL EXAMINATION Vital Signs Period Temp Pulse Resp BP Sys/Alvarez Pulse Ox Last 24 Hr 97.5 F-98.6 F 55-72 18-20 0-207/0-96 97-100 GENERAL: Awake, alert, and fully oriented, in no acute distress. EYES: Pupils equal, round and reactive to light, extraocular movements intact, sclera anicteric, conjunctiva clear. No lid lag.. NECK: no JVD appreciated LUNGS: CTA B/L; no rales, rhonchi, wheezing. HEART: Regular rate and rhythm, normal S1 and S2 without murmur, rub or gallop. ABDOMEN: Soft, nontender, not distended, normoactive bowel sounds, no guarding, no rebound, no masses. No hepatomegaly or splenomegaly. MUSCULOSKELETAL: Normal range of motion at all joints. No bony deformities or tenderness. No CVA tenderness. EXTREMITIES: warm; well perfused; no clubbing/cyanosis or edema NEUROLOGICAL: Cranial nerves II-XII intact. Normal speech. Normal gait.; Left sided diminished sensation and 4/5 strength - Right sided 5/5 strength with sensation intact. no facial droop or asymmetry appreciated PSYCHIATRIC: Cooperative. Good eye contact. Appropriate mood and affect. SKIN: Warm, dry, normal turgor, no rashes or lesions noted, normal capillary refill. CBCD WBC 4.8 K/mm3 (4.0-10.0) 10/28/17 06:33 RBC 4.67 M/mm3 (3.60-5.2) 10/28/17 06:33 Hgb 12.8 GM/dL (10.7-15.3) 10/28/17 06:33 Hct 39.5 % (32.4-45.2) 10/28/17 06:33 MCV 84.7 fl (80-96) 10/28/17 06:33 MCHC 32.3 g/dl (32.0-36.0) 10/28/17 06:33 RDW 14.3 % (11.6-15.6) 10/28/17 06:33 Plt Count 144 K/MM3 (134-434) 10/28/17 06:33 MPV 10.2 fl (7.5-11.1) 10/28/17 06:33 CMP Sodium 140 mmol/L (136-145) 10/28/17 06:33 Potassium 4.3 mmol/L (3.5-5.1) 10/28/17 06:33 Chloride 103 mmol/L (98-107) 10/28/17 06:33 Carbon Dioxide 30 mmol/L (21-32) 10/28/17 06:33 Anion Gap 7 MMOL/L (8-16) L 10/28/17 06:33 BUN 22 mg/dL (7-18) H 10/28/17 06:33 Creatinine 0.8 mg/dL (0.55-1.3) 10/28/17 06:33 Creat Clearance w eGFR > 60 (>60) 10/28/17 06:33 Random Glucose 91 mg/dL (74-106) 10/28/17 06:33 Calcium 9.1 mg/dL (8.5-10.1) 10/28/17 06:33 Total Bilirubin 0.8 mg/dL (0.2-1.0) 10/28/17 06:33 AST 24 U/L (15-37) 10/28/17 06:33 ALT 24 U/L (13-61) 10/28/17 06:33 Alkaline Phosphatase 78 U/L (45-117) 10/28/17 06:33 Total Protein 7.4 g/dl (6.4-8.2) 10/28/17 06:33 Albumin 3.7 g/dl (3.4-5.0) 10/28/17 06:33 CARDIAC ENZYMES Creatine Kinase 198 IU/L (26-192) H 10/27/17 17:57 Troponin I < 0.02 ng/ml (0.00-0.05) 10/27/17 17:57 CT head reviewed ASSESSMENT/PLAN: 77 y/o female with PMH of DM,HTN,HLD hypothyroidism presents to the ED with complaints of L sided numbness and weakness. Patient stated that she woke up and could not feel her left side and her left leg felt weak. She went about her day then went to her demolition hammer operator who told her to come to the ER immediately. She denied any headache/dizziness or any other neurological symptoms. She did not notice any changes in her gait or speech. 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 I was contacted by ER and we discussed results. Patient was not in TPA window and low NIHSS. She reports some slight numbness in distal LLE but otherwise no focal deficits, no speech disturbance. Was taking ASA at home which I increased to Aggrenox. Patient would like to go home today and explained that we would need Carotid doppler, echo completed and reviewed. Will defer on MRI as CT head already demonstrated infarct. at bedside and in agreement. On telemetry monitoring. On Statin 20mg at home, was increased to 80mg in ER, AM LDL is 87, will adjust statin down to 40 which should be sufficient. SCD boots added for DVT (unsure why patient on Lovenox, SCDs would be sufficient ). Monitor blood pressure, goal <160/90 for now, <130//80 as outpatient. Monitior glucose, Tight glycemic control, goal A1C < 6.0
[2017-10-28] MEDS ORDERED: ASPIRIN 81 MG CHEWABLE TABLETS PO SCH (10:00)
[2017-10-28] MEDS: ENOXAPARIN NA (PORCINE) 40 MG/0.4 ML DISP.SYRIN SQ SCH (10:06)
--- NOTE | 2017-10-28 10:46 | ECHO ---
Name: DARIEN HARPER Exam:Adult Echocardiogram Study Date: 10/28/2017 07:52 AM Age: 77 yrs Reason For Study: R?O CVA/TIA/Stroke Height: 66 in Weight: 215 lb BSA: 2.1 m2 MMode/2D Measurements & Calculations IVSd: 0.87 cm Ao root diam: 2.9 cm LVIDd: 5.4 cm LA dimension: 4.0 cm LVIDs: 3.3 cm ACS: 1.8 cm LVPWd: 0.98 cm IVSs: 1.4 cm LVPWs: 1.2 cm EDV(Teich): 143.3 ml ESV(Teich): 45.6 ml Doppler Measurements & Calculations MV E max bob: 82.1 cm/sec Ao V2 max: 131.4 cm/sec MV A max bob: 83.8 cm/sec Ao max P.9 mmHg MV E/A: 0.98 Ao V2 mean: 90.2 cm/sec Ao mean P.6 mmHg Ao V2 VTI: 34.3 cm MR max bob: 485.2 cm/sec TR max bob: 292.9 cm/sec MR max P.3 mmHg TR max P.4 mmHg PI end-d bob: 119.4 cm/sec Med Peak E' Bob: 6.5 cm/sec Med E/e': 12.7 Lat Peak E' Bob: 5.6 cm/sec Lat E/e': 14.7 Left Ventricle Ejection Fraction = 50-55%. Left ventricular systolic function is normal. Right Ventricle The right ventricle is normal in size and function. Atria The left atrium is mildly dilated. Mitral Valve The mitral valve is normal in structure and function. There is no mitral valve stenosis. There is mil d mitral regurgitation. Tricuspid Valve The tricuspid valve is normal in structure and function. There is mild tricuspid regurgitation. Right ventricular systolic pressure is elevated at 30-40mmHg. Aortic Valve The aortic valve opens well. No hemodynamically significant valvular aortic stenosis. No aortic regur gitation is present. Pulmonic Valve The pulmonic valve is not well seen, but is grossly normal. There is no pulmonic valvular stenosis. M ild pulmonic valvular regurgitation. Great Vessels The aortic root is normal size. Pericardium/Pleura There is no pericardial effusion. Interpretation Summary Ejection Fraction = 50-55%. Left ventricular systolic function is normal. The right ventricle is normal in size and function. The left atrium is mildly dilated. There is mild mitral regurgitation. There is mild tricuspid regurgitation. Right ventricular systolic pressure is elevated at 30-40mmHg. Mild pulmonic valvular regurgitation. The aortic root is normal size. There is no pericardial effusion. MD Luigi Love 10/28/2017 10:46 AM
[2017-10-28] MEDS: ASPIRIN/DIPYRIDAMOLE 25 MG/200 MG CAPSULE (FP) PO SCH ×2 (11:21→21:46)
--- NOTE | 2017-10-28 12:42 | PN ---
Progress Note, Physician History of Present Illness: pt seen/ examined. chart reviewed comfortable at bedside denies cp/sob/abd pain/ headche/ dizziness. - Current Medication List Current Medications: Active Medications Atorvastatin Calcium (Lipitor -) 40 mg PO HS [facility] Dipyridamole/Aspirin (Aggrenox -) 1 combo PO BID [facility] Last Admin: 10/28/17 11:21 Dose: 1 combo Enoxaparin Sodium (Lovenox -) 40 mg SQ DAILY [facility] Last Admin: 10/28/17 10:06 Dose: 40 mg Sodium Chloride (Normal Saline -) 1,000 mls @ 42 mls/hr IV ASDIR [facility] Last Admin: 10/27/17 23:32 Dose: 42 mls/hr Insulin Aspart (Novolog Vial Sliding Scale -) 1 vial SQ ACHS [facility]; Protocol Last Admin: 10/28/17 12:30 Dose: Not Given - Objective Vital Signs: Vital Signs Temperature 98 F 10/28/17 10:10 Pulse Rate 78 10/28/17 10:10 Respiratory Rate 20 10/28/17 10:10 Blood Pressure 152/74 10/28/17 10:10 O2 Sat by Pulse Oximetry (%) 97 10/28/17 09:00 Constitutional: Yes: No Distress, Calm Eyes: Yes: Conjunctiva Clear Neck: Yes: Supple Cardiovascular: Yes: Regular Rate and Rhythm Respiratory: Yes: CTA Bilaterally Edema: No Neurological: Yes: WNL, Alert ...Motor Strength: WNL Psychiatric: Yes: WNL Labs: CBC, BMP 10/28/17 06:33 10/28/17 06:33 INR, PTT INR 1.06 (0.83-1.09) 10/27/17 17:37 Problem List - Problems (1) HTN (hypertension) Code(s): I10 - ESSENTIAL (PRIMARY) HYPERTENSION (2) Kidney mass Code(s): N28.89 - OTHER SPECIFIED DISORDERS OF KIDNEY AND URETER (3) Cerebrovascular accident (CVA) Code(s): I63.9 - CEREBRAL INFARCTION, UNSPECIFIED (4) Numbness and tingling Code(s): R20.0 - ANESTHESIA OF SKIN; R20.2 - PARESTHESIA OF SKIN Assessment/Plan stable monitor same meds u/s carotid pt follows urology for kidney mass will follow
[2017-10-28] MEDS ORDERED: diphenhydrAMINE HCL 25 MG CAPSULE (FP) PO ONE (20:55)
[2017-10-28] MEDS ORDERED: ATORVASTATIN CA 80 MG TABLET (FP) PO SCH ×2 (22:00)
[2017-10-29] MEDS: INSULIN SLIDING SCALE (NOVOLOG) 1 VIAL SQ SCH ×2 (06:39→12:16)
[2017-10-29] MEDS: SODIUM CHLORIDE 1,000 ML IV SCH (06:43)
[2017-10-29] MEDS: ASPIRIN/DIPYRIDAMOLE 25 MG/200 MG CAPSULE (FP) PO SCH (09:21)
[2017-10-29] MEDS: ENOXAPARIN NA (PORCINE) 40 MG/0.4 ML DISP.SYRIN SQ SCH (09:21)
--- NOTE | 2017-10-29 12:19 | PN ---
Progress Note (short form) - Note Progress Note: Neurology CHIEF COMPLAINT: L sided numbness and weakness HISTORY OF PRESENT ILLNESS: 77 y/o female with PMH of DM,HTN,HLD hypothyroidism presents to the ED with complaints of L sided numbness and weakness. Patient stated that she woke up and could not feel her left side and her left leg felt weak. She went about her day then went to her driver examiner who told her to come to the ER immediately. She denied any headache/dizziness or any other neurological symptoms. She did not notice any changes in her gait or speech. 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 I was contacted by ER and we discussed results. Patient was not in TPA window and low NIHSS. She reported some slight numbness in distal LLE but otherwise no focal deficits , no speech disturbance. Was taking ASA at home which I increased to Aggrenox. Carotid doppler completed and reviewed, showed no HD significant stenosis. Echo completed, EF 50-55%, LV and RV function normal. Will defer on MRI as CT head already demonstrated infarct. On telemetry monitoring. On Statin 20mg at home, was increased to 80mg in ER, but LDL is 87, thus adjusted statin down to 40 which should be sufficient. Allergies No Known Allergies Allergy (Verified 10/27/17 17:31) Active Medications Atorvastatin Calcium (Lipitor -) 40 mg PO HS [facility] Last Admin: 10/28/17 21:46 Dose: 40 mg Dipyridamole/Aspirin (Aggrenox -) 1 combo PO BID [facility] Last Admin: 10/29/17 09:21 Dose: 1 combo Enoxaparin Sodium (Lovenox -) 40 mg SQ DAILY [facility] Last Admin: 10/29/17 09:21 Dose: 40 mg Sodium Chloride (Normal Saline -) 1,000 mls @ 42 mls/hr IV ASDIR [facility] Last Admin: 10/29/17 06:43 Dose: 42 mls/hr Insulin Aspart (Novolog Vial Sliding Scale -) 1 vial SQ ACHS [facility]; Protocol Last Admin: 10/29/17 06:39 Dose: Not Given PHYSICAL EXAMINATION Vital Signs Period Temp Pulse Resp BP Sys/Alvarez Pulse Ox Last 24 Hr 98.2 F-98.7 F 62-75 17-18 157-168/70-96 98-98 GENERAL: Awake, alert, and fully oriented, in no acute distress. EYES: Pupils equal, round and reactive to light, extraocular movements intact, sclera anicteric, conjunctiva clear. No lid lag.. NECK: no JVD appreciated LUNGS: CTA B/L; no rales, rhonchi, wheezing. HEART: Regular rate and rhythm, normal S1 and S2 without murmur, rub or gallop. ABDOMEN: Soft, nontender, not distended, normoactive bowel sounds, no guarding, no rebound, no masses. No hepatomegaly or splenomegaly. MUSCULOSKELETAL: Normal range of motion at all joints. No bony deformities or tenderness. No CVA tenderness. EXTREMITIES: warm; well perfused; no clubbing/cyanosis or edema NEUROLOGICAL: Cranial nerves II-XII intact. Normal speech. Normal gait.; Left sided diminished sensation and 4/5 strength - Right sided 5/5 strength with sensation intact. no facial droop or asymmetry appreciated PSYCHIATRIC: Cooperative. Good eye contact. Appropriate mood and affect. SKIN: Warm, dry, normal turgor, no rashes or lesions noted, normal capillary refill. CBCD WBC 4.8 K/mm3 (4.0-10.0) 10/28/17 06:33 RBC 4.67 M/mm3 (3.60-5.2) 10/28/17 06:33 Hgb 12.8 GM/dL (10.7-15.3) 10/28/17 06:33 Hct 39.5 % (32.4-45.2) 10/28/17 06:33 MCV 84.7 fl (80-96) 10/28/17 06:33 MCHC 32.3 g/dl (32.0-36.0) 10/28/17 06:33 RDW 14.3 % (11.6-15.6) 10/28/17 06:33 Plt Count 144 K/MM3 (134-434) 10/28/17 06:33 MPV 10.2 fl (7.5-11.1) 10/28/17 06:33 CMP Sodium 140 mmol/L (136-145) 10/28/17 06:33 Potassium 4.3 mmol/L (3.5-5.1) 10/28/17 06:33 Chloride 103 mmol/L (98-107) 10/28/17 06:33 Carbon Dioxide 30 mmol/L (21-32) 10/28/17 06:33 Anion Gap 7 MMOL/L (8-16) L 10/28/17 06:33 BUN 22 mg/dL (7-18) H 10/28/17 06:33 Creatinine 0.8 mg/dL (0.55-1.3) 10/28/17 06:33 Creat Clearance w eGFR > 60 (>60) 10/28/17 06:33 Random Glucose 91 mg/dL (74-106) 10/28/17 06:33 Calcium 9.1 mg/dL (8.5-10.1) 10/28/17 06:33 Total Bilirubin 0.8 mg/dL (0.2-1.0) 10/28/17 06:33 AST 24 U/L (15-37) 10/28/17 06:33 ALT 24 U/L (13-61) 10/28/17 06:33 Alkaline Phosphatase 78 U/L (45-117) 10/28/17 06:33 Total Protein 7.4 g/dl (6.4-8.2) 10/28/17 06:33 Albumin 3.7 g/dl (3.4-5.0) 10/28/17 06:33 CARDIAC ENZYMES Creatine Kinase 198 IU/L (26-192) H 10/27/17 17:57 Troponin I < 0.02 ng/ml (0.00-0.05) 10/27/17 17:57 CT head reviewed Carotid Doppler reviewed Echo reviewed ASSESSMENT/PLAN: 77 y/o female with PMH of DM,HTN,HLD hypothyroidism presents to the ED with complaints of L sided numbness and weakness. Patient stated that she woke up and could not feel her left side and her left leg felt weak. She went about her day then went to her driver examiner who told her to come to the ER immediately. She denied any headache/dizziness or any other neurological symptoms. She did not notice any changes in her gait or speech. 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 I was contacted by ER and we discussed results. Patient was not in TPA window and low NIHSS. She reports some slight numbness in distal LLE but otherwise no focal deficits, no speech disturbance. Was taking ASA at home which I increased to Aggrenox. Patient would again like to go home today Carotid Doppler reviewed, w/o HD stenosis Echo 50-55 % EF, normal LV and RV function Will defer on MRI as CT head already demonstrated infarct. On Statin 20mg at home, was increased to 80mg in ER, AM LDL is 87, adjusted statin down to 40 which should be sufficient. SCD boots added for DVT (unsure why patient on Lovenox, SCDs would be sufficient ). Monitor blood pressure, goal <160/90 for now, <130//80 as outpatient. Monitior glucose, Tight glycemic control, goal A1C < 6.0 No further rec;d at this time
--- NOTE | 2017-10-29 13:34 | DS ---
Physical Examination Vital Signs: Vital Signs Temperature 98.3 F 10/29/17 06:15 Pulse Rate 75 10/29/17 06:15 Respiratory Rate 18 10/29/17 06:15 Blood Pressure 160/73 10/29/17 06:15 O2 Sat by Pulse Oximetry (%) 98 10/29/17 06:15 Findings/Remarks: feels well wants to go home no complains Constitutional: Yes: No Distress, Calm, Obese Neck: Yes: Supple Cardiovascular: Yes: Regular Rate and Rhythm Respiratory: Yes: CTA Bilaterally Gastrointestinal: Yes: Soft Edema: No Neurological: Yes: Alert Psychiatric: Yes: Alert Labs: CBC, BMP 10/28/17 06:33 10/28/17 06:33 Discharge Summary Reason For Visit: CEREBROVASCULAR ACCIDENT (CVA) Current Active Problems Cerebrovascular accident (CVA) (Acute) Numbness and tingling (Acute) Hospital Course: admitted for left side numbness acute/ subacute cva-- thalmic neuro followed speech/ swallowing no issues started on aggrnox u/s carotid ok echo- ok discussed meds reconcilled statin dose increased d/c today f/u in office next week diet discussed d/c time 30 min in examining/ documenting. discussed with nursing staff. Condition: Guarded - Instructions Disposition: HOME - Home Medications Comprehensive Discharge Medication List: Ambulatory Orders Losartan Potassium 100 mg PO DAILY 06/28/17 Aspirin/Dipyridamole [Aggrenox -] 1 combo PO BID 30 Days #60 capsule 10/29/17 Atorvastatin Ca [Lipitor] 80 mg PO HS 30 Days #30 tablet 10/29/17 Metoprolol Succinate [Toprol Xl -] 25 mg PO DAILY #30 tab.sr.24h 10/29/17
[2017-10-29 17:11] VITALS: BP 190/82; PULSE 65; TEMP 98.2
== END 2017-10-29 17:16 | disposition home or self-care (01) | DRG 66 ==
LOC: JER 17:06 → JERBED 20:19 → J4W 10-28 02:47
PROVIDERS: ADMIT Internal Medicine; ATTEND Internal Medicine
DX: I63.9 Cerebral infarction, unspecified (principal); E11.9 Type 2 diabetes mellitus without complications; E78.5 Hyperlipidemia, unspecified; E03.9 Hypothyroidism, unspecified; I10 Essential (primary) hypertension; E66.9 Obesity, unspecified; Z68.34 Body mass index [BMI] 34.0-34.9, adult; R20.2 Paresthesia of skin; R29.701 NIHSS score 1; N28.89 Other specified disorders of kidney and ureter
CPT/HCPCS: 36415; 70450-TC; 80053; 81003; 82465; 82550; 82553; 82962; 83718; 83721; 83735; 84100; 84439; 84443; 84478; 84480; 84484; 85025; 85027; 85610; 86850; 86900; 86901; 87086; 93005; 93010; 93306-TC; 93880-TC; 97116-GP; 97161-GP; 99285-25; J7030

== ENCOUNTER 2020-04-29 14:41 | Inpatient (IN) | payer OTHER ==
[2020-04-29] MEDS ORDERED: NITROGLYCERIN SUBLINGUAL 1/150 0.4 MG TAB SL ONE (15:54)
[2020-04-29] MEDS ORDERED: ASPIRIN 325 MG TABLET PO ONE (15:55)
[2020-04-29 16:02] LABS: EOS % 0.5 % (0-4.5); HEMOGLOBIN 13.4 GM/dL (10.7-15.3); LYMPH % 7.3 % (8-40); MCH 28.9 pg (25.7-33.7); MCHC 32.6 g/dl (32.0-36.0); MEAN CELL VOLUME 88.7 fl (80-96); MEAN PLT VOLUME 10.4 fl (7.5-11.1); MONO % 7.2 % (3.8-10.2); PLATELET COUNT 151 K/MM3 (134-434); RBC 4.63 M/mm3 (3.60-5.2); RDW 14.2 % (11.6-15.6); WHITE BLOOD COUNT 7.6 K/mm3 (4.0-10.0)
[2020-04-29] MEDS ORDERED: ASPIRIN 325 MG ENTERIC COATED TABLET (FP) ONE (16:06)
[2020-04-29] MEDS ORDERED: NITROGLYCERIN SUBLINGUAL 1/150 0.4 MG TAB ONE (16:07)
[2020-04-29] MEDS ORDERED: FUROSEMIDE 40 MG/4 ML INJECTABLE VIAL IVPUSH ONE (16:20)
[2020-04-29 16:23] LABS: POTASSIUM 4.5 mmol/L (3.5-5.1)
[2020-04-29 16:25] LABS: ALBUMIN 3.5 g/dl (3.4-5.0); CALCIUM 9.4 mg/dL (8.5-10.1)
[2020-04-29 16:28] LABS: INR 0.97 (0.83-1.09); PROTHROMBIN TIME (PATIENT) 11.8 SEC (9.7-13.0)
[2020-04-29 16:30] LABS: BILIRUBIN,TOTAL 0.8 mg/dL (0.2-1); TOT PROT 7.2 g/dl (6.4-8.2)
[2020-04-29 16:31] LABS: ACTIVATED PTT 26.9 SECONDS (25.2-36.5)
[2020-04-29] MEDS ORDERED: FUROSEMIDE 40 MG/4 ML INJECTABLE VIAL ONE (16:54)
[2020-04-29] MEDS ORDERED: LOSARTAN POTASSIUM 50 MG TABLET PO ONE (21:02)
[2020-04-29] MEDS ORDERED: LOSARTAN POTASSIUM 50 MG TABLET ONE (21:39)
[2020-04-29] MEDS ORDERED: ASPIRIN/DIPYRIDAMOLE 25 MG/200 MG CAPSULE PO SCH (22:15)
[2020-04-29] MEDS ORDERED: ENOXAPARIN NA (PORCINE) 80 MG/0.8 ML DISP.SYRIN SQ ONE ×2 (22:57→23:02)
[2020-04-29] MEDS ORDERED: ASPIRIN 81 MG CHEWABLE TABLETS PO ONE (22:58)
[2020-04-29] MEDS ORDERED: ATORVASTATIN CA 80 MG TABLET (FP) ONE (23:02)
[2020-04-29] MEDS ORDERED: ASPIRIN/DIPYRIDAMOLE 25 MG/200 MG CAPSULE ONE (23:02)
[2020-04-29] MEDS ORDERED: ASPIRIN 81 MG CHEWABLE TABLETS ONE (23:02)
[2020-04-29] MEDS: ATORVASTATIN CA 80 MG TABLET (FP) PO SCH (23:14)
[2020-04-29] MEDS ORDERED: METOPROLOL TARTRATE 50 MG TABLET (FP) PO ONE (23:43)
[2020-04-29] MEDS ORDERED: ACETAMINOPHEN 325 MG TABLET (FP) PO ONE (23:43)
[2020-04-29] MEDS ORDERED: ACETAMINOPHEN 325 MG TABLET (FP) ONE (23:48)
[2020-04-29] MEDS ORDERED: METOPROLOL TARTRATE 50 MG TABLET (FP) ONE (23:49)
[2020-04-30 02:33] VITALS: BMI 35.4
[2020-04-30] MEDS: MELATONIN 5 MG TABLETS PO PRN ×2 (04:00→21:07)
[2020-04-30 08:09] LABS: BASO % 0.4 % (0-2.0); EOS % 1.9 % (0-4.5); HEMATOCRIT 39.7 % (32.4-45.2); HEMOGLOBIN 12.9 GM/dL (10.7-15.3); LYMPH % 18.4 % (8-40); MCH 28.9 pg (25.7-33.7); MCHC 32.6 g/dl (32.0-36.0); MEAN CELL VOLUME 88.6 fl (80-96); MEAN PLT VOLUME 11.1 fl (7.5-11.1); MONO % 10.9 % (3.8-10.2); NEUT % 68.4 % (42.8-82.8); PLATELET COUNT 146 K/MM3 (134-434); RBC 4.48 M/mm3 (3.60-5.2); RDW 14.2 % (11.6-15.6); WHITE BLOOD COUNT 6.3 K/mm3 (4.0-10.0)
[2020-04-30 08:35] LABS: POTASSIUM 4.5 mmol/L (3.5-5.1)
[2020-04-30 08:41] LABS: ALBUMIN 3.4 g/dl (3.4-5.0); CALCIUM 9.4 mg/dL (8.5-10.1); MAGNESIUM 2.3 mg/dL (1.8-2.4)
[2020-04-30 08:45] LABS: BILIRUBIN,TOTAL 1.1 mg/dL (0.2-1); TOT PROT 6.9 g/dl (6.4-8.2)
[2020-04-30] MEDS ORDERED: ENOXAPARIN NA (PORCINE) 80 MG/0.8 ML DISP.SYRIN SQ SCH (11:00)
[2020-04-30] MEDS: metoPROLOL SUCCINATE 25 MG TAB.SR.24H (FP) PO SCH (11:17)
[2020-04-30] MEDS: LOSARTAN POTASSIUM 50 MG TABLET PO SCH (11:17)
[2020-04-30 12:51] LABS: N-TERMINAL BNP 5532.4 pg/ml (5-450)
[2020-04-30] MEDS ORDERED: FUROSEMIDE 40 MG/4 ML INJECTABLE VIAL IVPUSH ONE (17:57)
[2020-04-30] MEDS ORDERED: PT OWN MED DRAWER 7, Y5N ONE (20:23)
[2020-04-30] MEDS: ATORVASTATIN CA 80 MG TABLET (FP) PO SCH (21:05)
[2020-05-01 07:35] LABS: POTASSIUM 3.9 mmol/L (3.5-5.1)
[2020-05-01 07:43] LABS: BLOOD UREA NITROGEN 25.3 mg/dL (7-18)
[2020-05-01 07:45] LABS: CALCIUM 9.5 mg/dL (8.5-10.1)
[2020-05-01 07:46] LABS: CREATININE 1.1 mg/dL (0.55-1.3)
[2020-05-01] MEDS: ASPIRIN 81 MG CHEWABLE TABLETS PO SCH (10:38)
[2020-05-01] MEDS: metoPROLOL SUCCINATE 25 MG TAB.SR.24H (FP) PO SCH (10:38)
[2020-05-01] MEDS: LOSARTAN POTASSIUM 50 MG TABLET PO SCH (10:38)
[2020-05-01] MEDS: FUROSEMIDE 40 MG/4 ML INJECTABLE VIAL IVPUSH SCH (10:39)
[2020-05-01] MEDS: ENOXAPARIN NA (PORCINE) 40 MG/0.4 ML DISP.SYRIN SQ SCH (10:40)
[2020-05-01] MEDS ORDERED: diphenhydrAMINE HCL 25 MG CAPSULE (FP) PO ONE (16:45)
[2020-05-01] MEDS: MELATONIN 5 MG TABLETS PO PRN (21:51)
[2020-05-01] MEDS: ATORVASTATIN CA 80 MG TABLET (FP) PO SCH (21:51)
[2020-05-02] MEDS ORDERED: ACETAMINOPHEN 325 MG TABLET (FP) PO ONE (06:15)
[2020-05-02] MEDS: FUROSEMIDE 40 MG/4 ML INJECTABLE VIAL IVPUSH SCH (08:26)
[2020-05-02] MEDS: LOSARTAN POTASSIUM 50 MG TABLET PO SCH (08:27)
[2020-05-02] MEDS: metoPROLOL SUCCINATE 25 MG TAB.SR.24H (FP) PO SCH (08:27)
[2020-05-02] MEDS ORDERED: REGADENOSON 0.4 MG/5 ML PRE-FILLED SYRINGE IVPUSH ONE ×2 (09:47→10:30)
[2020-05-02] MEDS: ASPIRIN 81 MG CHEWABLE TABLETS PO SCH (11:23)
[2020-05-02] MEDS: ENOXAPARIN NA (PORCINE) 40 MG/0.4 ML DISP.SYRIN SQ SCH (11:24)
[2020-05-02] MEDS: ATORVASTATIN CA 80 MG TABLET (FP) PO SCH (21:25)
[2020-05-03] MEDS: FUROSEMIDE 40 MG/4 ML INJECTABLE VIAL IVPUSH SCH ×3 (07:47→10:11)
[2020-05-03] MEDS: metoPROLOL SUCCINATE 25 MG TAB.SR.24H (FP) PO SCH ×2 (07:47→09:02)
[2020-05-03] MEDS: LOSARTAN POTASSIUM 50 MG TABLET PO SCH ×2 (07:47→09:02)
[2020-05-03] MEDS ORDERED: ACETAMINOPHEN 325 MG TABLET (FP) PO ONE (08:32)
[2020-05-03] MEDS: ASPIRIN 81 MG CHEWABLE TABLETS PO SCH (09:02)
[2020-05-03] MEDS: ENOXAPARIN NA (PORCINE) 40 MG/0.4 ML DISP.SYRIN SQ SCH (09:02)
[2020-05-03] MEDS: ATORVASTATIN CA 80 MG TABLET (FP) PO SCH (22:29)
[2020-05-03] MEDS: MELATONIN 5 MG TABLETS PO PRN (22:29)
[2020-05-04] MEDS: LOSARTAN POTASSIUM 50 MG TABLET PO SCH (10:09)
[2020-05-04] MEDS: ASPIRIN 81 MG CHEWABLE TABLETS PO SCH (10:09)
[2020-05-04] MEDS: FUROSEMIDE 40 MG/4 ML INJECTABLE VIAL IVPUSH SCH (10:11)
[2020-05-04] MEDS: metoPROLOL SUCCINATE 25 MG TAB.SR.24H (FP) PO SCH (10:11)
[2020-05-04] MEDS: ENOXAPARIN NA (PORCINE) 40 MG/0.4 ML DISP.SYRIN SQ SCH (10:11)
[2020-05-04] MEDS: ACETAMINOPHEN 325 MG TABLET (FP) PO PRN (10:13)
[2020-05-04] MEDS: ATORVASTATIN CA 80 MG TABLET (FP) PO SCH (22:10)
[2020-05-05] MEDS: ASPIRIN 81 MG CHEWABLE TABLETS PO SCH (10:14)
[2020-05-05] MEDS: LOSARTAN POTASSIUM 50 MG TABLET PO SCH (10:14)
[2020-05-05] MEDS: ENOXAPARIN NA (PORCINE) 40 MG/0.4 ML DISP.SYRIN SQ SCH (10:14)
[2020-05-05] MEDS: FUROSEMIDE 40 MG/4 ML INJECTABLE VIAL IVPUSH SCH (10:34)
[2020-05-05] MEDS: FUROSEMIDE 40 MG TABLET (FP) PO SCH (11:30)
[2020-05-05] MEDS: ACETAMINOPHEN 325 MG TABLET (FP) PO PRN ×2 (13:05→21:10)
[2020-05-05] MEDS: ATORVASTATIN CA 80 MG TABLET (FP) PO SCH (21:08)
[2020-05-05] MEDS: MELATONIN 5 MG TABLETS PO PRN (21:08)
[2020-05-06] MEDS: ENOXAPARIN NA (PORCINE) 40 MG/0.4 ML DISP.SYRIN SQ SCH (09:10)
[2020-05-06] MEDS: LOSARTAN POTASSIUM 50 MG TABLET PO SCH (09:10)
[2020-05-06] MEDS: ASPIRIN 81 MG CHEWABLE TABLETS PO SCH (09:10)
[2020-05-06] MEDS: FUROSEMIDE 40 MG TABLET (FP) PO SCH (09:10)
[2020-05-06] MEDS: ACETAMINOPHEN 325 MG TABLET (FP) PO PRN (10:52)
[2020-05-06] MEDS: ATORVASTATIN CA 80 MG TABLET (FP) PO SCH (21:44)
[2020-05-06] MEDS: MELATONIN 5 MG TABLETS PO PRN (21:45)
[2020-05-07] MEDS: ASPIRIN 81 MG CHEWABLE TABLETS PO SCH (10:01)
[2020-05-07] MEDS: LOSARTAN POTASSIUM 50 MG TABLET PO SCH (10:02)
[2020-05-07] MEDS: ENOXAPARIN NA (PORCINE) 40 MG/0.4 ML DISP.SYRIN SQ SCH (10:02)
[2020-05-07] MEDS: FUROSEMIDE 40 MG TABLET (FP) PO SCH (10:02)
[2020-05-07] MEDS: CLOPIDOGREL BISULFATE 75 MG TABLET (FP) PO SCH (10:04)
[2020-05-07] MEDS: ACETAMINOPHEN 325 MG TABLET (FP) PO PRN ×2 (10:26→21:57)
[2020-05-07] MEDS: ATORVASTATIN CA 80 MG TABLET (FP) PO SCH (21:55)
[2020-05-07] MEDS: MELATONIN 5 MG TABLETS PO PRN (21:57)
[2020-05-08] MEDS: CLOPIDOGREL BISULFATE 75 MG TABLET (FP) PO SCH (09:35)
[2020-05-08] MEDS: ENOXAPARIN NA (PORCINE) 40 MG/0.4 ML DISP.SYRIN SQ SCH (09:35)
[2020-05-08] MEDS: ASPIRIN 81 MG CHEWABLE TABLETS PO SCH (09:35)
[2020-05-08] MEDS: LOSARTAN POTASSIUM 50 MG TABLET PO SCH (09:35)
[2020-05-08] MEDS: FUROSEMIDE 40 MG TABLET (FP) PO SCH (09:35)
[2020-05-08] MEDS: ACETAMINOPHEN 325 MG TABLET (FP) PO PRN (09:42)
[2020-05-08 12:06] VITALS: BP 155/88; PULSE 68; TEMP 97.8
== END 2020-05-08 12:12 | disposition short-term general hospital (02) | DRG 280 ==
LOC: JER 14:41 → JERBED 20:54 → J4W 04-30 01:10
PROVIDERS: ADMIT Internal Medicine; ATTEND Internal Medicine
DX: I13.0 Hypertensive heart and chronic kidney disease with heart failure and stage 1 through stage 4 chronic kidney disease, or unspecified chronic kidney disease (principal); I50.43 Acute on chronic combined systolic (congestive) and diastolic (congestive) heart failure; I21.A1 Myocardial infarction type 2; N18.9 Chronic kidney disease, unspecified; I10 Essential (primary) hypertension; E11.9 Type 2 diabetes mellitus without complications; E78.5 Hyperlipidemia, unspecified; E03.9 Hypothyroidism, unspecified; I44.7 Left bundle-branch block, unspecified; D64.9 Anemia, unspecified; I25.119 Atherosclerotic heart disease of native coronary artery with unspecified angina pectoris; E04.9 Nontoxic goiter, unspecified; D69.6 Thrombocytopenia, unspecified; E66.9 Obesity, unspecified; Z68.35 Body mass index [BMI] 35.0-35.9, adult; R00.0 Tachycardia, unspecified; Z86.73 Personal history of transient ischemic attack (TIA), and cerebral infarction without residual deficits
CPT/HCPCS: 36415; 71045-TC-FY; 71275-TC; 78452-TC; 80048; 80053; 80061; 82550; 82553; 82962; 83721; 83735; 83880; 84443; 84481; 84484; 85025; 85379; 85610; 85730; 93005; 93010; 93017; 93306-TC; 93971-TC; 99285-25; A9502; C9803; J2785; Q9967; U0003

== ENCOUNTER 2022-01-19 04:29 | Day surgery (SDC) | payer OTHER ==
[2022-01-15 15:05] VITALS: BMI 35.4
[2022-01-19] MEDS ORDERED: TRIAMCINOLONE ACET 40MG/1ML VIAL ONE (07:55)
[2022-01-19] MEDS ORDERED: LIDOCAINE HCL/PF 1% SDV 5ML VIAL ONE (07:56)
[2022-01-19] MEDS ORDERED: BUPIVACAINE HCL/PF 0.5% (5MG/ML) 10 ML VIAL ONE (07:56)
[2022-01-19] MEDS ORDERED: LIDOCAINE HCL 1%, 10 MG/ML (20ML VIAL) INF ONE (12:11)
[2022-01-19] MEDS ORDERED: BUPIVACAINE HCL/PF 0.5% (5 MG/ML) 30 ML VIAL IJ ONE (12:12)
[2022-01-19] MEDS ORDERED: IOHEXOL 180 MG/1 ML ML IJ ONE (12:12)
[2022-01-19] MEDS ORDERED: TRIAMCINOLONE ACET 40MG/1ML VIAL IM ONE (12:12)
[2022-01-19 12:50] VITALS: PULSE 60; RESP 20
[2022-01-19 13:53] VITALS: BP 150/70; TEMP 98.6
== END 2022-01-19 13:00 | disposition home or self-care (01) ==
LOC: JASU-SURG 04:29
PROVIDERS: ATTEND Pain Medicine Pain Medicine
PROC: 3E0U3BZ Introduction of Anesthetic Agent into Joints, Percutaneous Approach (ICD-10-PCS; 2022-01-19)
PROC: 3E0U33Z Introduction of Anti-inflammatory into Joints, Percutaneous Approach (ICD-10-PCS; principal; 2022-01-19 12:00)
DX: M53.3 Sacrococcygeal disorders, not elsewhere classified (principal)
CPT/HCPCS: 76000-TC-FY

== ENCOUNTER 2023-05-20 19:29 | Emergency (ER) | payer OTHER ==
[2023-05-20 19:32] VITALS: BP 156/105; PULSE 80; RESP 18; TEMP 97.5; BMI 31.4
[2023-05-20] MEDS: ACETAMINOPHEN 500 MG TABLET (FP) PO ONE (20:28)
[2023-05-20] MEDS ORDERED: ACETAMINOPHEN 325 MG TABLET (FP) ONE (20:29)
[2023-05-20] MEDS ORDERED: METHOCARBAMOL 500 MG TABLET ONE (20:36)
[2023-05-20] MEDS: METHOCARBAMOL 500 MG TABLET PO ONE (20:37)
[2023-05-20] MEDS ORDERED: CYCLOBENZAPRINE HCL 5 MG TABLET ONE (20:37)
[2023-05-20] MEDS: CYCLOBENZAPRINE HCL 5 MG TABLET PO ONE (20:37)
[2023-05-20] MEDS ORDERED: LIDOCAINE 4% PATCH TP ONE ×2 (21:51→22:00)
[2023-05-20] MEDS: LIDOCAINE 5% TOPICAL PATCH TP ONE (21:55)
[2023-05-20] MEDS ORDERED: LIDOCAINE PATCH REMOVAL MC ONE (22:00)
[2023-05-21] MEDS ORDERED: LIDOCAINE PATCH REMOVAL MC ONE (10:00)
== END 2023-05-20 22:04 | disposition home or self-care (01) ==
LOC: JER 19:29
DX: S39.92XA Unspecified injury of lower back, initial encounter (principal); M25.552 Pain in left hip; M25.551 Pain in right hip; G89.29 Other chronic pain; X58.XXXA Exposure to other specified factors, initial encounter
CPT/HCPCS: 72100-TC-FY; 72170-TC-FY; 99283-25

== ENCOUNTER 2024-06-09 15:43 | Emergency (ER) | payer OTHER ==
[2024-06-09 15:57] VITALS: RESP 16; BMI 31.9
[2024-06-09 18:04] LABS: ABSOLUTE IMMATURE GRANULOCYTES 0.01 x10^3/uL (0.0-0.031); BASOPHILS # 0.04 x10^3/uL (0.01-0.08); EOSINOPHIL % 2.8 % (0.7-5.8); EOSINOPHILS # 0.17 x10^3/uL (0.04-0.36); HEMATOCRIT 39.9 % (34.1-44.9); HEMOGLOBIN 12.7 g/dL (11.2-15.7); MCHC 31.8 g/dl (32.2-35.5); MEAN CELL VOLUME 88.3 fl (79.4-94.8); MEAN PLT VOLUME 11.3 fl (9.4-12.3); MONOCYTE # 0.55 x10^3/uL (0.24-0.86); MONOCYTE % 9.2 % (4.7-12.5); PLATELET COUNT 181 x10^3/uL (182-369); RDW 12.9 % (12.5-17.0)
[2024-06-09 18:14] LABS: ACTIVATED PTT 31.2 SECONDS (25.2-36.5)
[2024-06-09] MEDS ORDERED: ONDANSETRON 4 MG/2 ML VIAL ONE (18:23)
[2024-06-09] MEDS ORDERED: ACETAMINOPHEN INJECTION 100 ML ONE (18:23)
[2024-06-09 18:28] LABS: POTASSIUM 4.3 mmol/L (3.5-5.1)
[2024-06-09 18:30] LABS: CALCIUM 10.1 mg/dL (8.5-10.1)
[2024-06-09 18:31] LABS: ALBUMIN 3.9 g/dl (3.4-5.0); BLOOD UREA NITROGEN 27.4 mg/dL (7-18); MAGNESIUM 2.1 mg/dL (1.8-2.4)
[2024-06-09] MEDS: ACETAMINOPHEN 1000 MG/100 ML BAG IVPB ONE (18:32)
[2024-06-09] MEDS: ONDANSETRON 4 MG/2 ML VIAL IVPUSH ONE (18:33)
[2024-06-09 18:34] LABS: PHOSPHOROUS 2.8 mg/dL (2.5-4.9)
[2024-06-09 18:35] LABS: BILIRUBIN,TOTAL 0.5 mg/dL (0.2-1); TOT PROT 7.7 g/dl (6.4-8.2)
[2024-06-09 19:32] LABS: HCV DIAGNOSTIC IN-HOUSE W/RFLX NON-REACTIVE (NONREACTIVE); HIV INTERPRETATION NEGATIVE (NEGATIVE)
[2024-06-09 19:33] VITALS: BP 188/68; PULSE 67; TEMP 98
[2024-06-09] MEDS ORDERED: ASPIRIN 81 MG CHEWABLE TABLETS ONE (19:52)
[2024-06-09] MEDS: ASPIRIN 81 MG CHEWABLE TABLETS PO ONE (19:54)
== END 2024-06-09 20:27 | disposition left against medical advice (07) ==
LOC: JER 15:43
PROC: 3E033NZ Introduction of Analgesics, Hypnotics, Sedatives into Peripheral Vein, Percutaneous Approach (ICD-10-PCS; principal; 2024-06-09)
PROC: 3E033GC Introduction of Other Therapeutic Substance into Peripheral Vein, Percutaneous Approach (ICD-10-PCS; 2024-06-09)
DX: R07.81 Pleurodynia (principal); R53.83 Other fatigue; R11.2 Nausea with vomiting, unspecified; R61 Generalized hyperhidrosis
CPT/HCPCS: 0241U-QW; 36415; 71045-TC-FY; 80053; 83735; 84100; 84484; 85025; 85610; 85730; 86803; 86850; 86900; 86901; 87389; 93005; 93010; 99285-25; J0131

== ENCOUNTER 2024-07-26 05:34 | Day surgery (SDC) | payer OTHER ==
[2024-07-25 10:08] VITALS: BMI 33.9
[2024-07-26] MEDS ORDERED: LIDOCAINE HCL/PF 2% SDV 5ML VIAL ONE (07:35)
[2024-07-26] MEDS ORDERED: BUPIVACAINE HCL/PF 0.5% (5MG/ML) 10 ML VIAL ONE (07:35)
[2024-07-26] MEDS ORDERED: BUPIVACAINE HCL/PF 0.25% (2.5MG/ML) 10 ML VIAL ONE (07:35)
[2024-07-26] MEDS ORDERED: BUPIVACAINE HCL/PF 0.75% 10 ML VIAL ONE (07:36)
[2024-07-26] MEDS ORDERED: LIDOCAINE HCL/PF 1% SDV 5ML VIAL ONE (07:36)
[2024-07-26 08:37] VITALS: RESP 16
[2024-07-26] MEDS ORDERED: ACETAMINOPHEN 500 MG TABLET (FP) PO PRN (08:57)
[2024-07-26] MEDS ORDERED: DEXAMETHASONE SOD PHOSPHATE 10 MG/1 ML VIAL ONE (09:01)
[2024-07-26] MEDS: LIDOCAINE HCL 1% PRESERVATIVE FREE - 30ML VIAL IJ ONE (10:09)
[2024-07-26] MEDS: IOHEXOL 180 MG/1 ML ML IJ ONE ×2 (10:10)
[2024-07-26] MEDS: TRIAMCINOLONE ACETONIDE 40 MG/ML 10 ML VIAL IJ ONE ×2 (10:11)
[2024-07-26] MEDS: BUPIVACAINE HCL/PF 0.5% (5MG/ML) 10 ML VIAL IJ ONE ×2 (10:11)
[2024-07-26 11:16] VITALS: BP 141/55; PULSE 52; TEMP 98
== END 2024-07-26 11:00 | disposition home or self-care (01) ==
LOC: JASU-SURG 05:34
PROVIDERS: ATTEND Pain Medicine Pain Medicine
PROC: 3E0U3BZ Introduction of Anesthetic Agent into Joints, Percutaneous Approach (ICD-10-PCS; 2024-07-26)
PROC: 3E0U33Z Introduction of Anti-inflammatory into Joints, Percutaneous Approach (ICD-10-PCS; principal; 2024-07-26 09:45)
DX: M53.3 Sacrococcygeal disorders, not elsewhere classified (principal)
CPT/HCPCS: 76000-TC-FY; J1100